=== PATIENT | female | born 1955 | race Caucasian/White ===

== ENCOUNTER 2017-01-22 16:38 | Inpatient (IN) | payer BC ==
--- NOTE | ~2017-01-22 | OP ---
Record Of Operation [facility] [address] [place]. [address] NAME: GAYLE LYONS : [birth year] STATUS : ADM IN [facility]#: [id number] AGE: 61 ADM/REG DATE : 01/22/17 MR#: [id number] REPORT SERV DATE: 01/23/17 DICTATED BY: ANABEL HARMAN DATE: 01/23/17 REPORT STATUS : Draft TRANSCRIBED BY: MODL DATE: 01/23/17 DATE OF PROCEDURE: 01/23/2017 PULMONARY CRITICAL CARE MEDICINE PROCEDURE NOTE PROCEDURE: Insertion of a right femoral arterial line for hemodynamic monitoring and frequent blood sampling. CONSENT: Written from the patient's . ANESTHETIC: 1% lidocaine without epinephrine 1 mL intradermally. PROCEDURE IN DETAIL: After verifying written consent from the patient's and conducting a time-out identifying the patient is Gayle Lyons, date of 1955, a sterile area was created using maximal sterile barriers including cap, gown, face shield, gloves, and sterile drape and the skin was prepped with chlorhexidine at the right groin. Subsequently under direct ultrasound visualization and a longitudinal view, a finder needle was used to aspirate bright red blood from the right femoral artery and a guidewire was advanced to a depth of approximately 5 cm. Subsequently a small jane was made with a 11 blade scalpel and a femoral arterial line catheter was inserted over the guidewire using Seldinger technique and secured to the skin with suture material. It was then connected to the transducer which showed a satisfactory pulsation on the monitor and an ABG was sent for analysis. A sterile Bioclusive dressing was applied and the procedure was completed. ESTIMATED BLOOD LOSS: Less than 1 mL. IMMEDIATE COMPLICATIONS: None. ELIAS/PHIL Anabel Harman MD / [id number] CC: Anabel Harman MD
--- NOTE | ~2017-01-22 | OP ---
Record Of Operation [facility] [address] [place]. [address] NAME: GAYLE LYONS : [birth year] STATUS : ADM IN PAT#: [id number] AGE: 61 ADM/REG DATE : 01/22/17 MR#: [id number] REPORT SERV DATE: 01/23/17 DICTATED BY: ANABEL HARMAN DATE: 01/23/17 REPORT STATUS : Draft TRANSCRIBED BY: MODL DATE: 01/23/17 DATE OF PROCEDURE: 01/23/2017 PROCEDURE: Right internal jugular Vas-Cath insertion for institution of CRRT. CONSENT: Written from the patient's . ANESTHETIC: 1% lidocaine without epinephrine intradermally. PROCEDURE DETAILS: Gayle Lyons was prepped and draped in the usual sterile fashion. A time out was called. Her procedural consent was reviewed which was signed by her and subsequently the right neck was prepped with chlorhexidine and maximal sterile barriers including cap, mask, gown, gloves, and sterile drape were used to create a sterile field and 1% lidocaine approximately 1 mL was instilled intradermally to achieve satisfactory local anesthetic. Subsequently, a Finder needle was used to aspirate blood under direct ultrasound visualization in the longitudinal view from the right internal jugular vein. A guidewire was inserted to a depth of approximately 10 cm and sequential dilators were passed after making a small jane with an 11 blade scalpel and ultimately a double-lumen Vas-Cath was inserted to a depth of approximately 14 cm and secured to the skin with suture material and a sterile Bioclusive dressing was applied. There was satisfactory blood aspiration and flush in both ports. A followup chest x-ray showed the tip of the catheter projecting into the superior vena cava and the line was cleared for use. ESTIMATED BLOOD LOSS: Less than 1 mL. IMMEDIATE COMPLICATIONS: None. ELAIS/PHIL Anabel Harman MD / [id number] CC: Anabel Harman MD
--- NOTE | ~2017-01-22 | CN ---
Consultation Report [facility] [address] [place]. [address] NAME: MATHEUS LYONS : 57 STATUS : ADM IN [facility]#: [id number] AGE: 61 ADM/REG DATE : 01/22/17 MR#: [id number] REPORT SERV DATE: 01/23/17 DICTATED BY: CRYSTAL DOBSON DATE: 01/23/17 REPORT STATUS : Draft TRANSCRIBED BY: MODL DATE: 01/23/17 NEPHROLOGY CONSULTATION DATE OF CONSULTATION: 01/23/2017 INDICATION FOR CONSULTATION: Acute kidney injury. HISTORY OF PRESENT ILLNESS: Ms. Lyons is a 61-year-old female who is seen for acute oliguric kidney failure following admission with acute hypoxemic respiratory failure and sepsis. She currently is on Levophed, phenylephrine, and vent support with minimal urine output and elevated procalcitonin and refractory acidosis. Her creatinine has risen from 0.57 to a value of 1.74, pH is 7.19, bicarb of 18 with a lactic acid of 12.3. She has been followed for pancreatic cancer since 2013 with laparoscopic Whipple procedure done at [facility] in 10/2013. She received radiation therapy and is followed by Dr. Somers for chemotherapy. PAST MEDICAL HISTORY: Pancreatic CA in 2013, remote hypertension, status post laparoscopic Whipple procedure. ALLERGIES: TO CLINDAMYCIN AND DILAUDID PER CHART. MEDICATIONS: Per chart. Creon, Aleve, fentanyl, Marinol, and Zofran. SOCIAL HISTORY: Per chart. The patient has taught gymnastics. No history of tobacco use. Uses wine socially. 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 FAMILY HISTORY: No biliary cancer per chart. Otherwise, unable to obtain. REVIEW OF SYSTEMS: Unable to obtain. PHYSICAL EXAMINATION: GENERAL: Sedated female on vent with OG tube and ET tube in place. VITAL SIGNS: Blood pressure 102/57 with prior low blood pressure and systolic of 50s. Temp 99.8 for T-max, current temp 97.3; respiratory rate 28; pulse 83. HEENT: Eyes: No scleral icterus. Pupils reactive. Extraocular movements not evaluated. Nares, no discharge. Mouth with OG tube and ET tube in place. NECK: No thyromegaly, masses, or bruits. CHEST/LUNGS: Few crackles laterally, unable to appreciate rhonchi. Symmetrical chest expansion. ABDOMEN: Supple. Bowel sounds decreased. No guarding. No tenderness. BREASTS: Exam not performed. PELVIC: Exam not performed. RECTAL: Exam not performed. EXTREMITIES: 1+ edema. Feet are mottled. No calf tenderness. Consultation Report [place] [id number] [address] NAME: MATHEUS LYONS : [birth year] STATUS : ADM IN [facility]#: [id number] AGE: 61 ADM/REG DATE : 01/22/17 MR#: [id number] REPORT SERV DATE: 01/23/17 DICTATED BY: CRYSTAL DOBSON DATE: 01/23/17 REPORT STATUS : Draft TRANSCRIBED BY: PHIL DATE: 01/23/17 NEUROLOGIC: Unable to evaluate. MUSCULOSKELETAL: No deformity. IMPRESSION: 1. Acute kidney injury, oliguric, likely secondary to severe shock/sepsis. 2. Severe sepsis, likely due to pneumonia with evidence of bilateral pulmonary infiltrates and left pleural effusion on chest x-ray. 3. Shock, on pressors. 4. Acute hypoxemic respiratory failure, on vent. 5. Coagulopathy with an INR of 4.3 and evidence of DIC. 6. Pancreatic CA in 2013, status post laparoscopic Whipple procedure at [facility] in 10/2013, chronic immunosuppression with chemotherapy. 7. Remote hypertension. 8. Remote irritable bowel syndrome. 9. Remote gastroesophageal reflux disease. 10.Anemia. PLAN: 1. Emergent CRRT discussed with . He is willing to proceed. 2. Labs. CG/MODL Crystal Dobson M.D. / [id number] CC: Janelle Duran MD
--- NOTE | ~2017-01-22 | DS ---
Discharge Summary [place] [address] [place]. [address] NAME: MATHEUS LYONS : [birth year] STATUS : DIS IN PAT#: [id number] AGE: 61 ADM/REG DATE : 01/22/17 MR#: [id number] REPORT SERV DATE: 02/07/17 DICTATED BY: ANABEL HARMAN DATE: 02/06/17 REPORT STATUS : Draft TRANSCRIBED BY: MODL DATE: 02/06/17 ADMISSION DATE: 01/22/2017 DISCHARGE DATE: 01/26/2017 SUMMARY DATE OF : 01/26/2017 DIAGNOSES AT THE TIME OF ADMISSION: Included: 1. Acute hypoxemic respiratory failure. 2. Sepsis, presumably secondary to pneumonia. 3. Advanced stage metastatic pancreatic cancer. 4. Volume depletion/dehydration. 5. Metabolic acidosis secondary to lactate elevation. 6. Immunocompromised state secondary to chemotherapy. 7. Hypoalbuminemia secondary to protein-calorie malnutrition. 8. Hypokalemia. 9. Underlying past medical history of anxiety, hypertension, chronic pain syndrome, chronic constipation associated with home analgesics. DIAGNOSES AT THE TIME OF : 1. Acute hypoxemic respiratory failure. 2. Profound septic shock with refractory lactic acidosis. 3. Adrenal insufficiency. 4. Shock liver. 5. Coagulopathy secondary to septic shock. 6. Metastatic pancreatic cancer. 7. Acute kidney injury requiring continuous dialysis. 8. Supraventricular tachycardia. 9. Hypoalbuminemia. 10.Large left pleural effusion. 11.Immunocompromised state secondary to chemotherapy. 12.Underlying past medical history of anxiety, hypertension, chronic pain, chronic constipation associated with chronic analgesic use. BRIEF HISTORY AND PHYSICAL: Please see my detailed dictation from 01/22/2017 for full details. Ms. Lyons was a very pleasant 61-year-old lady with past medical history of advanced stage pancreatic cancer, who was followed by Dr. Somers. She was diagnosed in 10/2013 via ERCP biopsy performed by Dr. Minaya and had been treated with a Whipple procedure at [facility] performed 10/27/2013 and later underwent both chemotherapy and XRT with Dr. Alexander. Her last chemotherapy was two weeks prior to her hospitalization. She presented to the ER at [facility] complaining of nausea, vomiting, dehydration, anxiety, and shortness of breath. She was found to be quite hypotensive and appeared to be volume depleted and was treated with aggressive IV rehydration and supplemental oxygen. She was ultimately transferred to our facility at the request of her to be closer to her oncologist. She was quite tachypneic on arrival, requiring Discharge Summary [place] [address] [address] NAME: MATHEUS LYONS : 57 STATUS : DIS IN PAT#: [id number] AGE: 61 ADM/REG DATE : 01/22/17 MR#: [id number] REPORT SERV DATE: 02/07/17 DICTATED BY: ANABEL HARMAN DATE: 02/06/17 REPORT STATUS : Draft TRANSCRIBED BY: MODL DATE: 02/06/17 maximal Vapotherm support and was ultimately intubated later in the evening on 01/22/[address] Terrell who also placed a central line on left subclavian on the evening of her admission. Please see his detailed procedure notes for additional information with regard to those procedures. HOSPITAL COURSE: Unfortunately, Ms. Lyons continued to deteriorate from worsening septic shock. Over the next 24 hours, she developed acute renal failure and was started on CRRT by Dr. Jeronimo who saw her in consultation. Please see my Vas-Cath insertion note for details of that procedure. She also underwent placement of a right femoral arterial line for hemodynamic monitoring and frequent blood sampling, which I performed on 01/23/2017. Please see my dictation for details of that procedure. She was seen by Dr. Somers from Oncology who knew her as an outpatient, who recommended ongoing aggressive support initially; however, she continued to deteriorate over the next couple of days and we obtained further information with regard to her metastatic disease (new CT demonstrated both skull METs and a new pulmonary embolus as well as a large left pleural effusion). Dr. Somers recommended that we move toward comfort focused care as her overall prognosis with regard to her underlying malignancy was fairly poor. She continued to deteriorate, requiring multiple vasopressors and began developing periods of bradycardia down to the 30s. I did have a number of meetings with her and two sons and they ultimately made her no shock, no CPR. On 01/24/2017, her oxygen and PEEP requirements continued to climb over the next few days, and IR was consulted for consideration of possible left-sided thoracentesis due to her large pleural effusion; however, they felt she was too high risk to proceed in light of her coagulopathy and high-level ventilatory support. On the morning of 01/26/2017, a family meeting was conducted between myself, Dr. Somers, and Dr. Jeronimo around 8 a.m. with the patient's and two sons, and the decision was made to proceed with transition to full comfort measures. She was premedicated with morphine and Ativan, and vasopressor support was discontinued, and she developed PEA and ultimately asystole, short time later she was pronounced by nursing staff at 10:40 a.m. on 01/26/2017 with her and two sons at bedside as well as multiple other family members. All of their questions were answered and they declined an autopsy. Her body was released to [facility] on the afternoon of 01/26/2017. TDS was contacted and declined at 11:45 a.m. on the morning of 01/26/2017. Please see additional handwritten progress notes as well as detailed dictations from consultants, imaging reports, laboratory reports, and additional supplemental information available on [employer] and RMI. DICTATED BY: MD ELIAS Mcbride/PHIL Anabel Harman MD Discharge Summary [address] [address] NAME: MATHEUS LYONS : 57 STATUS : DIS IN PAT#: [id number] AGE: 61 ADM/REG DATE : 01/22/17 MR#: [id number] REPORT SERV DATE: 02/07/17 DICTATED BY: ANABEL HARMAN DATE: 02/06/17 REPORT STATUS : Draft TRANSCRIBED BY: MODL DATE: 02/06/17 / [id number] CC: MD Betsey Mcbride
--- NOTE | ~2017-01-22 | OP ---
Record Of Operation [facility] [address] [place] [address] NAME: MATHEUS DING : 57 STATUS : ADM IN PAT#: [id number] AGE: 61 ADM/REG DATE : 01/22/17 MR#: [id number] REPORT SERV DATE: 01/22/17 DICTATED BY: JUAERZ TERRELL DATE: 01/22/17 REPORT STATUS : Draft TRANSCRIBED BY: MODL DATE: 01/22/17 DATE OF PROCEDURE: PROCEDURE PERFORMED: Central line placement. INDICATION: Persistent shock. DESCRIPTION OF PROCEDURE: The left subclavian area was prepped and draped in a sterile fashion using chlorhexidine solution. Topical anesthesia was achieved with lidocaine. We were able to cannulate the vein on the first attempt after confirming localization with ultrasound. Following cannulation, we advanced the guidewire without resistance and advanced a triple lumen central line catheter following Seldinger technique. All 3 ports withdrew nonpulsatile blood. All 3 ports flushed well. We secured the line with 0 silk, and chest radiograph is pending. HUSAM/PHIL Juarez Terrell M.D. / [id number] CC: Janelle Duran MD
--- NOTE | ~2017-01-22 | OP ---
Record Of Operation [facility] [address] [place] [address] NAME: MATHEUS DING : 57 STATUS : ADM IN [facility]#: [id number] AGE: 61 ADM/REG DATE : 01/22/17 MR#: [id number] REPORT SERV DATE: 01/22/17 DICTATED BY: JUAREZ TERRELL DATE: 01/22/17 REPORT STATUS : Draft TRANSCRIBED BY: MODL DATE: 01/22/17 DATE OF PROCEDURE: PROCEDURE PERFORMED: Oral endotracheal intubation. INDICATION: Impending respiratory failure with significant hypoxemia. DESCRIPTION OF PROCEDURE: The patient received 10 mL of IV propofol, and then using a #4 GlideScope blade, we were able to directly visualize the vocal cords which were midline and clear. We advanced a size 7.5 endotracheal tube beyond the vocal cords without difficulty. Proper placement was confirmed by good color change on an end-tidal CO2 indicator. Good auscultation of breath sounds bilaterally. Direct visualization of the endotracheal tube advanced beyond the vocal cords and chest radiograph. IMPRESSION: Successful oroendotracheal intubation for impending hypoxemic respiratory failure. HUSAM/PHIL Juarez Terrell M.D. / [id number] CC: Janelle Duran MD
--- NOTE | ~2017-01-22 | HP ---
History And Physical [place] [facility] [place] [address] NAME: MATHEUS LYONS : 57 STATUS : ADM IN [facility]#: [id number] AGE: 61 ADM/REG DATE : 01/22/17 MR#: [id number] REPORT SERV DATE: 01/22/17 DICTATED BY: ANABEL HARMAN DATE: 01/22/17 REPORT STATUS : Draft TRANSCRIBED BY: MODL DATE: 01/22/17 DATE OF ADMISSION: 01/22/2017 REASON FOR ADMISSION: Acute hypoxemic respiratory failure and cardiac arrhythmias. HISTORY OF PRESENT ILLNESS: Ms Lyons is a very pleasant 61-year-old lady who has a past medical history of advanced age pancreatic cancer, who is followed by Dr. Somers. She was actually diagnosed in October 2013, initially presenting as a biliary stricture, which was performed ERCP by Dr. Minaya and biopsies confirmed poorly differentiated infiltrating adenocarcinoma. She evaluated surgical options and ultimately underwent a laparoscopic Whipple at the [facility] on 10/27/2013. Final path revealed an infiltrating poorly differentiated adenocarcinoma, measuring 1.5 cm in the greatest dimension arising in the ampulla and invading the duodenum and the pancreatic head. Tumor was present less than 1 mm from the uncinate margin and 1 out of 12 regional lymph nodes were positive. There was also a perineural invasion, she recovered at [facility] for one week and ultimately was able to come back to [place], where she has been followed by doctors Yonis and Benjamin. Her last chemotherapy was 2 weeks ago. She presented via EMS to the [facility] Emergency Department today complaining of nausea, vomiting, suspected dehydration, anxiety, and shortness of breath. She was evaluated by EMS and actually found to have positive tilt test with orthostasis and received a 500 mL bolus in route to [facility] and another 1 L of fluid at [facility] followed by 200 mL an hour of maintenance fluid. Her labs showed a marked leukocytosis around 25,000 and a lactate level of 5.75. She received a dose of Zosyn and was ultimately transferred to our facility at the patient, her family's request to be closer to her primary oncologist Dr. Somers. She arrived here short time ago and is somewhat tachypneic on maximal Vapotherm 40 L on 100%. She does confirm some sputum production, but reports that she has been feeling fairly well up until the last couple of days. Of note, her mentioned that she does get around on a walker due to bone mets and a significant pain. PAST MEDICAL HISTORY: She has additional past medical history of hypertension. SURGICAL HISTORY: Includes laparoscopic Whipple at [facility] in October 2013, as described above as well as a Port-A-Cath insertion by Dr. Julio Cesar Reyes. She has occasional constipation and is status post menopause and hormones. She is A0 L2. HOME MEDICATIONS: Include Creon status post pancreatectomy, Aleve, Fentanyl, Marinol, and Zofran on an as-needed basis. ALLERGIES: HER ALLERGIES INCLUDE CLINDAMYCIN AND DILAUDID. SOCIAL HISTORY: She teaches gymnastics up until recently. She is a long-time nonsmoker, occasional alcohol use, and is . Her is her power of energy attorney. He is a retired policeman from the [employer]. FAMILY HISTORY: Noncontributory. History And Physical [address] [address] NAME: MATHEUS LYONS : 57 STATUS : ADM IN [facility]#: [id number] AGE: 61 ADM/REG DATE : 01/22/17 MR#: [id number] REPORT SERV DATE: 01/22/17 DICTATED BY: ANABEL HARMAN DATE: 01/22/17 REPORT STATUS : Draft TRANSCRIBED BY: PHIL DATE: 01/22/17 REVIEW OF SYSTEMS: Negative except for those points described above in the history of present illness section of the dictation. ADVANCED DIRECTIVES/LIVING BOSWELL: None. Her is her designated medical decision maker and reports that she is a full code, although should she deteriorate significantly, he would be open to adjusting her code status if clinically warranted in light of her advanced stage malignancy. PHYSICAL EXAMINATION: VITAL SIGNS: Heart rate is 108 presently, although she went up to almost 200 at [facility]. Blood pressure is 110 systolic. She is afebrile. Has a respiratory rate of around 38 per minute. GENERAL: The patient is alert, oriented, somewhat tachypneic on maximal Vapotherm and is able to speak in short sentences. She is mildly pale. HEENT: Head is atraumatic and normocephalic. Pupils are somewhat sunken, equal, round, and reactive to light. Her pupils are somewhat dilated at around 4 mm bilaterally and reactive to light. Extraocular movements are intact. She has mild conjunctival pallor. Ears, nose, and mouth are unremarkable except for dry oral mucosa with some crusting of the mucosa around the lips. NECK: Supple with so much accessary muscle use. Development work of breathing. CHEST: Symmetric with no active wheezing. She does have some transmitted upper airway sounds bilaterally and is mildly tachycardic with a regular rate and rhythm and no audible murmur on my examination. She has a Port-A-Cath in the right upper chest, which has already been accessed by nursing staff. ABDOMEN: Soft, nontender, and nondistended with positive bowel sounds in all four quadrants and no appreciable peritoneal signs. She does have a healed series of laparoscopic incisions from prior laparoscopic Whipple. : Unremarkable. There is no Santos catheter present as of yet. EXTREMITIES: Without clubbing, cyanosis, or edema. She has well manicured nails. LYMPHATIC: Unremarkable. She has no palpable adenopathy. NEUROLOGIC: Grossly intact. She moves all four extremities without difficulty and is cooperative and interactive with examination. PSYCHIATRIC: Appropriate to situation. LABORATORY AND DIAGNOSTIC STUDIES: Personal review of diagnostic workup completed today. At our facility, she has a CBC which is just resulted with white blood cell count of 26,000, hemoglobin of 10.3, and hematocrit of 32.2, a platelet count of 513 with a marked left shift with 90% segs and 1% bands. At the [facility] Emergency Department, it has been a full panel of labs completed and include a lactate of 5.75, some mildly elevated transaminases, pH 7.37 on ABG with a CO2 of 26, O2 of 42, PaO2 of 42, bicarb level of 15. This was on 40% FiO2. Her lipase level was undetectable. Potassium was mildly depressed at 3.4, calcium at 6.6 with an albumin level of 2.5 (corrected calcium for albumin level is close to normal). Her renal function is unremarkable. A series of EKG shows normal QT interval and supraventricular tachycardia on the initial tracing with sinus tach on a tracing from about 1 hour before the EKG showing sinus tach. No ST elevation or depression. There is no echocardiogram on file in our system. History And Physical [facility] [address] [place]. [address] NAME: MATHEUS LYONS : 57 STATUS : ADM IN PAT#: [id number] AGE: 61 ADM/REG DATE : 01/22/17 MR#: [id number] REPORT SERV DATE: 01/22/17 DICTATED BY: ANABEL HARMAN DATE: 01/22/17 REPORT STATUS : Draft TRANSCRIBED BY: MODWinston DATE: 01/22/17 IMPRESSION: 1. Acute hypoxemic respiratory failure of unclear etiology. 2. Suspected pneumonia. 3. Advanced stage metastatic pancreatic cancer on chemotherapy per Dr. Somers with evidence of bone mets and question of mediastinal mets and question of malignant pleural effusion. (We will need to obtain further records to clarify the extent of her disease). 4. Dehydration with positive tilt test and orthostasis at the [place] [facility], status post approximately 700 mL of normal saline resuscitation thus far. 5. Metabolic acidosis/lactic acidosis. 6. Immunocompromised state secondary to chemotherapy. 7. Hypoalbuminemia secondary to protein-calorie malnutrition. 8. Hypokalemia. 9. Underlying history of anxiety, hypertension, chronic pain, and chronic constipation associated with medications. PLAN: We have already started Ms. Lyons on additional fluid boluses and broad-spectrum antibiotics to include vancomycin and Zosyn. We will trend her lactate level and continue bolus with crystalloids on an as-needed basis to maintain her map home. We will proceed with a PICC line insertion for additional IV access as she certainly has the potential to deteriorate in the next 24 hours and may require use of vasopressors. She is tolerating Vapotherm on maximal settings for now and is somewhat tachypneic, however, would like to hold off on being intubated if possible, however, this has been discussed with the patient and her , and they are agreeable to proceed with intubation should her respiratory status further deteriorate. Suspect that her SVT is secondary to dehydration, sepsis, and hypoxemia. We will continue correct underlying causes and at family's request we will involve Cardiology. We will also check a 2D echocardiogram. We will trend her labs and replete electrolytes on an as-needed basis. Insert a Santos catheter for strict monitor Is and Os, and make further adjustments to her regimen as clinically warranted. She is full code, has been started on DVT prophylaxis and may benefit from CT angiogram of her chest to exclude thromboembolic disease once she is more clinically stable. We will hold off on full anticoagulation for now, pending further workup this evening. I did discuss the case with patient's at length as well as Dr. Mayur Rodriguez from Pathology, who is a family friend and visited this evening. ELIAS/PHIL Anabel Harman MD / [id number] CC: Anabel Harman MD
[~2017-01-22 16:38] MED LIST: ACET500CAP PO; ANTIBIOTIC IV; ASAB PO; BAC PO; CREON12000 UNT PO; GEMZAR IV; HARD NAILS PO; LEVAQUIN750 MG PO; MULTIVIT/MIN PO; NORV5 PO; ZOFRAN PO; ZOFRAN8 PO
[2017-01-22 17:13] LABS: BASOPHILS 0.1 %; BASOPHILS ABSOLUTE 0.02 10/3/uL (0.0-0.16); EOSINOPHILS 0 %; IMMATURE GRANULOCYTES 0.6 %; IMMATURE GRANULOCYTES ABSOLUTE 0.15 10/3/uL (0.0-0.11); LYMPHOCYTES 2.4 %; LYMPHOCYTES ABSOLUTE 0.62 10/3/uL (0.67-4.30); MEAN CORPUSCULAR HEMOGLOB 26.9 pg (26.0-34.0); MEAN PLATELET VOLUME 9.1 fL (9.2-13.0); MONOCYTES 4.8 %; MONOCYTES ABSOLUTE 1.27 10/3/uL (0.21-1.20); NEUTROPHILS 92.1 %; NEUTROPHILS ABSOLUTE 24.17 10/3/uL (2.02-8.40); RED CELL COUNT 3.83 10/6/uL (4.0-5.6)
[2017-01-22 17:17] LABS: HEMATOCRIT 32.2 % (36.0-48.0); HEMOGLOBIN 10.3 g/dL (12.0-16.0); MEAN CORPUSCULAR VOLUME 84.1 fL (80-100); PLATELET COUNT 513 10/3/uL (150-400); RBC DISTRIBUTION WIDTH 17.8 % (12.0-16.0); WHITE BLOOD CELLS 26.2 10/3/uL (4.5-10.5)
[2017-01-22 17:41] LABS: ANISOCYTOSIS 1+ (5-10/OIF) (0-5/OIF); BAND NEUTROPHILS 1 %; MONOCYTES 7 %; MONOCYTES ABSOLUTE (CALC) 1.83 10/3/uL (0.21-1.20); NEUTROPHILS ABSOLUTE (CALC) 24.37 10/3/uL (2.02-8.40); PLATELET ESTIMATE SLT INC (ADEQUATE); SEGMENTED NEUTROPHIL (0) 92 %; TOTAL NUCLEATED CELLS 100
[2017-01-22 17:42] LABS: POIKILOCYTOSIS 1+ (5-10/OIF) (0-5/OIF); VACUOLATED NEUTROPHILES OCC
[2017-01-22 17:45] LABS: MANUAL DIFF NO %
[2017-01-22 17:50] LABS: BUN (BLOOD UREA NITROGEN) 8 MG/DL (6-23); CHLORIDE, SERUM 108 MMOL/L (96-112); CO2 (CARBON DIOXIDE) 21 MMOL/L (24-34); CREATININE 0.57 MG/DL (0.55-1.02); FREE T4 1.86 NG/DL (0.76-1.46); GFR AFRICAN AMERICAN 117 ML/MIN (>=60); GFR NON AFRICAN AMERICAN 101 ML/MIN (>=60); GLUCOSE, SERUM 133 MG/DL (60-99); PHOSPHORUS, SERUM 2.3 MG/DL (2.5-4.5); POTASSIUM, SERUM 3.3 MMOL/L (3.5-5.3); SGOT(AST) 63 U/L (5-40); SGPT(ALT) 28 U/L (5-65); SODIUM, SERUM 140 MMOL/L (135-148)
[2017-01-22 17:52] LABS: A/G RATIO 0.5 (0.7-1.9); ALBUMIN 1.8 G/DL (3.5-5.0); ALKALINE PHOSPHATASE 265 U/L (45-117); FOLATE 15.9 NG/ML (>5.2); GLOBULIN 3.4 G/DL (2.5-4.1); TOTAL BILIRUBIN 0.8 MG/DL (0-1.2); TOTAL PROTEIN 5.2 G/DL (6.0-8.5)
[2017-01-22 18:03] LABS: CALCIUM, SERUM 6.6 MG/DL (8.5-10.4)
[2017-01-23 01:47] LABS: BE (BASE EXCESS) -14.7 MEQ/L (0 +/- 2.5); CARBOXYHEMOGLOBIN 0.2 % (0-3); HCO3 (ACTUAL BICARBONATE) 12.7 MEQ/L (23-27); INSTRUMENT SERIAL # 35151; METHEMOGLOBIN 0.2 % (0-3); O2 CONTENT 13.4 VOL% (18-24); OPERATOR ID 32193; PCO2 (CO2 TENSION) 35 MMHG (35-45); PO2 (O2 TENSION) 118 MMHG (79-93); SAMPLE Arterial; pH 7.17 (7.37-7.43)
[2017-01-23 01:47] LABS: CARBOXYHEMOGLOBIN 0.1 % (0-3); HCO3 (ACTUAL BICARBONATE) 10.4 MEQ/L (23-27); HEMOBLOGIN CONTENT 10.2 G/DL (12-16); INSTRUMENT SERIAL # 35151; METHEMOGLOBIN 0.3 % (0-3); MODE CMV; O2 CONTENT 14.2 VOL% (18-24); OPERATOR ID 32193; PCO2 (CO2 TENSION) 34 MMHG (35-45); PO2 (O2 TENSION) 209 MMHG (79-93); SAMPLE Arterial; TIDAL VOLUME 400 ML
[2017-01-23 01:48] LABS: TIDAL VOLUME 400 ML
[2017-01-23 05:17] LABS: HEMATOCRIT 31.3 % (36.0-48.0); HEMOGLOBIN 9.3 g/dL (12.0-16.0); MEAN CORPUSCULAR HEMOGLOB 26.5 pg (26.0-34.0); MEAN PLATELET VOLUME 9.7 fL (9.2-13.0); NUCLEATED RED BLOOD CELLS 0.2 /100WBC (0-0); PLATELET COUNT 586 10/3/uL (150-400); RBC DISTRIBUTION WIDTH 18.6 % (12.0-16.0); RED CELL COUNT 3.51 10/6/uL (4.0-5.6)
[2017-01-23 05:20] LABS: MANUAL DIFF YES %; MEAN CORPUS HGB CONC 29.7 g/dL (32.0-36.0); MEAN CORPUSCULAR VOLUME 89.2 fL (80-100); WHITE BLOOD CELLS 35.3 10/3/uL (4.5-10.5)
[2017-01-23 05:25] LABS: ALBUMIN 1.7 G/DL (3.5-5.0); BUN (BLOOD UREA NITROGEN) 11 MG/DL (6-23); CHLORIDE, SERUM 100 MMOL/L (96-112); SODIUM, SERUM 137 MMOL/L (135-148)
[2017-01-23 05:29] LABS: CALCIUM, SERUM 6.2 MG/DL (8.5-10.4); CO2 (CARBON DIOXIDE) 13 MMOL/L (24-34); CREATININE 1.39 MG/DL (0.55-1.02); GFR AFRICAN AMERICAN 48 ML/MIN (>=60); GFR NON AFRICAN AMERICAN 41 ML/MIN (>=60); GLUCOSE, SERUM 241 MG/DL (60-99); PHOSPHORUS, SERUM 4.9 MG/DL (2.5-4.5); POTASSIUM, SERUM 4.1 MMOL/L (3.5-5.3)
[2017-01-23 05:45] LABS: ANISOCYTOSIS 1+ (5-10/OIF) (0-5/OIF); BAND NEUTROPHILS 14 %; LYMPHOCYTES 1 %; LYMPHOCYTES ABSOLUTE (CALC) 0.35 10/3/uL (0.67-4.30); MONOCYTES 4 %; MONOCYTES ABSOLUTE (CALC) 1.41 10/3/uL (0.21-1.20); NEUTROPHILS ABSOLUTE (CALC) 33.54 10/3/uL (2.02-8.40); PLATELET ESTIMATE INC (ADEQUATE); POLYCHROMASIA 1+ (2-5/OIF) (0-1/OIF); SEGMENTED NEUTROPHIL (0) 81 %; TOTAL NUCLEATED CELLS 100
[2017-01-23] MEDS ORDERED: Z-PAK PO (10:42)
[2017-01-23] MEDS ORDERED: DURA25 TOP (10:42)
[2017-01-23] MEDS ORDERED: [UNRECOGNIZED DRUG - CODE] PO (10:43)
[2017-01-23] MEDS ORDERED: ALEVE220 MG PO (10:43)
[2017-01-23] MEDS ORDERED: MARI2.5 PO (10:43)
[2017-01-23 10:49] LABS: HEMATOCRIT 32.4 % (36.0-48.0); HEMOGLOBIN 9.8 g/dL (12.0-16.0); MANUAL DIFF YES %; MEAN CORPUS HGB CONC 30.2 g/dL (32.0-36.0); MEAN CORPUSCULAR VOLUME 89.3 fL (80-100); MEAN PLATELET VOLUME 9.6 fL (9.2-13.0); NUCLEATED RED BLOOD CELLS 0.2 /100WBC (0-0); PLATELET COUNT 572 10/3/uL (150-400); RBC DISTRIBUTION WIDTH 18.6 % (12.0-16.0); RED CELL COUNT 3.63 10/6/uL (4.0-5.6); WHITE BLOOD CELLS 39.7 10/3/uL (4.5-10.5)
[2017-01-23 10:51] LABS: FIBRINOGEN 452 MG/DL (230-462); INTERNATIONAL NORMAL RATI 4.2 UNITS (-); PARTIAL THROMBO TIME 55.6 SEC (22.5-37.2)
[2017-01-23 10:53] LABS: PROTIME (NOT ORD) 39.9 SEC (12.0-14.5)
[2017-01-23 11:01] LABS: ANISOCYTOSIS 1+ (5-10/OIF) (0-5/OIF); BAND NEUTROPHILS 11 %; D-DIMER QUANTITATIVE 3.57 ug/mLFEU (< 0.50); LYMPHOCYTES 1 %; MONOCYTES 2 %; MONOCYTES ABSOLUTE (CALC) 0.79 10/3/uL (0.21-1.20); NEUTROPHILS ABSOLUTE (CALC) 38.51 10/3/uL (2.02-8.40); PLATELET ESTIMATE SLT INC (ADEQUATE); SEGMENTED NEUTROPHIL (0) 86 %; TOTAL NUCLEATED CELLS 100
[2017-01-23 11:02] LABS: BURR CELLS 1+ (3-10/OIF) (0-2/OIF); POLYCHROMASIA 1+ (2-5/OIF) (0-1/OIF); TOXIC GRANULATION 1+; VACUOLATED NEUTROPHILES OCC
[2017-01-23 11:08] LABS: A/G RATIO 0.5 (0.7-1.9); ALBUMIN 1.7 G/DL (3.5-5.0); BUN (BLOOD UREA NITROGEN) 13 MG/DL (6-23); CHLORIDE, SERUM 98 MMOL/L (96-112); CPK (IF ELEVATED MB BANDS) 483 U/L (0-200); CREATININE 1.74 MG/DL (0.55-1.02); GFR AFRICAN AMERICAN 36 ML/MIN (>=60); GFR NON AFRICAN AMERICAN 31 ML/MIN (>=60); GLOBULIN 3.4 G/DL (2.5-4.1); PHOSPHORUS, SERUM 4.9 MG/DL (2.5-4.5); POTASSIUM, SERUM 4.2 MMOL/L (3.5-5.3); SGOT(AST) 289 U/L (5-40); SGPT(ALT) 66 U/L (5-65); SODIUM, SERUM 134 MMOL/L (135-148); TOTAL PROTEIN 5.1 G/DL (6.0-8.5)
[2017-01-23 11:08] LABS: BE (BASE EXCESS) -13.3 MEQ/L (0 +/- 2.5); CARBOXYHEMOGLOBIN 0.2 % (0-3); HEMOBLOGIN CONTENT 10.1 G/DL (12-16); INSTRUMENT SERIAL # 35151; METHEMOGLOBIN 0.2 % (0-3); MODE CMV; O2 CONTENT 13.2 VOL% (18-24); OPERATOR ID 32199; PCO2 (CO2 TENSION) 37 MMHG (35-45); PO2 (O2 TENSION) 90 MMHG (79-93); SAMPLE Arterial; TIDAL VOLUME 400 ML; pH 7.19 (7.37-7.43)
[2017-01-23 11:09] LABS: ALKALINE PHOSPHATASE 280 U/L (45-117); CO2 (CARBON DIOXIDE) 18 MMOL/L (24-34); DIRECT BILIRUBIN 1.2 MG/DL (0.0-0.4); GLUCOSE, SERUM 291 MG/DL (60-99); INDIRECT BILIRUBIN(NOT ORDER) 0.4 MG/DL (0.1-0.9); TOTAL BILIRUBIN 1.6 MG/DL (0-1.2)
[2017-01-23 11:10] LABS: TROPONIN I 0.52 NG/ML (<0.05)
[2017-01-23 11:23] LABS: CK-MB 14.8 NG/ML
[2017-01-23 11:25] LABS: CKMB INDEX (NOT ORD) 3.1
[2017-01-23 11:36] LABS: PROCALCITONIN 2.31 ng/mL (<0.5)
[2017-01-23 16:36] LABS: CHLORIDE, SERUM 98 MMOL/L (96-112); CREATININE 1.44 MG/DL (0.55-1.02); GFR AFRICAN AMERICAN 46 ML/MIN (>=60); GFR NON AFRICAN AMERICAN 39 ML/MIN (>=60); GLUCOSE, SERUM 243 MG/DL (60-99); POTASSIUM, SERUM 3.6 MMOL/L (3.5-5.3); SODIUM, SERUM 136 MMOL/L (135-148)
[2017-01-23 16:37] LABS: BUN (BLOOD UREA NITROGEN) 9 MG/DL (6-23); CALCIUM, SERUM 5.6 MG/DL (8.5-10.4); CO2 (CARBON DIOXIDE) 22 MMOL/L (24-34)
[2017-01-23 17:40] LABS: HEMATOCRIT 29.2 % (36.0-48.0); MEAN CORPUS HGB CONC 30.8 g/dL (32.0-36.0); MEAN CORPUSCULAR HEMOGLOB 26.5 pg (26.0-34.0); MEAN PLATELET VOLUME 9.5 fL (9.2-13.0); NUCLEATED RED BLOOD CELLS 0.3 /100WBC (0-0); PLATELET COUNT 464 10/3/uL (150-400); RBC DISTRIBUTION WIDTH 18.7 % (12.0-16.0); RED CELL COUNT 3.39 10/6/uL (4.0-5.6)
[2017-01-23 17:41] LABS: MEAN CORPUSCULAR VOLUME 86.1 fL (80-100); WHITE BLOOD CELLS 34.5 10/3/uL (4.5-10.5)
[2017-01-23 17:42] LABS: MANUAL DIFF YES %
[2017-01-23 17:50] LABS: PHOSPHORUS, SERUM 3.3 MG/DL (2.5-4.5)
[2017-01-23 17:58] LABS: BAND NEUTROPHILS 5 %; MONOCYTES 5 %; MONOCYTES ABSOLUTE (CALC) 1.73 10/3/uL (0.21-1.20); NEUTROPHILS ABSOLUTE (CALC) 32.78 10/3/uL (2.02-8.40); SEGMENTED NEUTROPHIL (0) 90 %; TOTAL NUCLEATED CELLS 100
[2017-01-23 17:59] LABS: ANISOCYTOSIS 1+ (5-10/OIF) (0-5/OIF); PLATELET ESTIMATE SLT INC (ADEQUATE)
[2017-01-23 18:00] LABS: POLYCHROMASIA 1+ (2-5/OIF) (0-1/OIF)
[2017-01-23 18:01] LABS: ELLIPTOCYTES 1+ (3-10/OIF) (0-2/OIF)
[2017-01-23 23:29] LABS: BUN (BLOOD UREA NITROGEN) 7 MG/DL (6-23); CHLORIDE, SERUM 102 MMOL/L (96-112); CO2 (CARBON DIOXIDE) 24 MMOL/L (24-34); CREATININE 1.07 MG/DL (0.55-1.02); GFR AFRICAN AMERICAN 65 ML/MIN (>=60); GFR NON AFRICAN AMERICAN 56 ML/MIN (>=60); POTASSIUM, SERUM 4.2 MMOL/L (3.5-5.3); SODIUM, SERUM 138 MMOL/L (135-148)
[2017-01-23 23:30] LABS: GLUCOSE, SERUM 136 MG/DL (60-99)
[2017-01-23 23:31] LABS: CALCIUM, SERUM 6.4 MG/DL (8.5-10.4)
[2017-01-23 23:36] LABS: HEMATOCRIT 26.4 % (36.0-48.0); HEMOGLOBIN 8.1 g/dL (12.0-16.0); MEAN CORPUS HGB CONC 30.7 g/dL (32.0-36.0); MEAN CORPUSCULAR HEMOGLOB 26.3 pg (26.0-34.0); MEAN CORPUSCULAR VOLUME 85.7 fL (80-100); MEAN PLATELET VOLUME 9.2 fL (9.2-13.0); NUCLEATED RED BLOOD CELLS 0.5 /100WBC (0-0); PLATELET COUNT 388 10/3/uL (150-400); RBC DISTRIBUTION WIDTH 18.4 % (12.0-16.0); RED CELL COUNT 3.08 10/6/uL (4.0-5.6)
[2017-01-23 23:38] LABS: MANUAL DIFF YES %; WHITE BLOOD CELLS 27.1 10/3/uL (4.5-10.5)
[2017-01-23 23:56] LABS: ANISOCYTOSIS 1+ (5-10/OIF) (0-5/OIF); BAND NEUTROPHILS 9 %; LYMPHOCYTES 1 %; LYMPHOCYTES ABSOLUTE (CALC) 0.27 10/3/uL (0.67-4.30); MONOCYTES 2 %; MONOCYTES ABSOLUTE (CALC) 0.54 10/3/uL (0.21-1.20); NEUTROPHILS ABSOLUTE (CALC) 26.29 10/3/uL (2.02-8.40); PLATELET ESTIMATE ADQ (ADEQUATE); SEGMENTED NEUTROPHIL (0) 88 %; TOTAL NUCLEATED CELLS 100
[2017-01-23 23:57] LABS: TEARDROP SHAPED RBCS FEW (3-10/OIF)
[2017-01-24 03:43] LABS: BE (BASE EXCESS) -1.5 MEQ/L (0 +/- 2.5); CARBOXYHEMOGLOBIN 0.3 % (0-3); HCO3 (ACTUAL BICARBONATE) 22.6 MEQ/L (23-27); HEMOBLOGIN CONTENT 7.8 G/DL (12-16); INSTRUMENT SERIAL # 35151; METHEMOGLOBIN 0.3 % (0-3); MODE CMV; O2 CONTENT 10.2 VOL% (18-24); OPERATOR ID 17370; PCO2 (CO2 TENSION) 35 MMHG (35-45); PO2 (O2 TENSION) 78 MMHG (79-93); SAMPLE Arterial; TIDAL VOLUME 400 ML; pH 7.43 (7.37-7.43)
[2017-01-24 05:39] LABS: HEMATOCRIT 24.2 % (36.0-48.0); HEMOGLOBIN 7.7 g/dL (12.0-16.0); MEAN CORPUS HGB CONC 31.8 g/dL (32.0-36.0); MEAN CORPUSCULAR HEMOGLOB 26.8 pg (26.0-34.0); MEAN CORPUSCULAR VOLUME 84.3 fL (80-100); MEAN PLATELET VOLUME 9.5 fL (9.2-13.0); NUCLEATED RED BLOOD CELLS 0.5 /100WBC (0-0); RBC DISTRIBUTION WIDTH 18.5 % (12.0-16.0); RED CELL COUNT 2.87 10/6/uL (4.0-5.6); WHITE BLOOD CELLS 22.3 10/3/uL (4.5-10.5)
[2017-01-24 05:51] LABS: ALBUMIN 1.7 G/DL (3.5-5.0); BUN (BLOOD UREA NITROGEN) 6 MG/DL (6-23); CALCIUM, SERUM 7.3 MG/DL (8.5-10.4); CHLORIDE, SERUM 102 MMOL/L (96-112); CO2 (CARBON DIOXIDE) 25 MMOL/L (24-34); CREATININE 0.89 MG/DL (0.55-1.02); GFR AFRICAN AMERICAN 82 ML/MIN (>=60); GFR NON AFRICAN AMERICAN 70 ML/MIN (>=60); GLUCOSE, SERUM 143 MG/DL (60-99); POTASSIUM, SERUM 4.2 MMOL/L (3.5-5.3); SGOT(AST) 344 U/L (5-40); SGPT(ALT) 87 U/L (5-65); SODIUM, SERUM 137 MMOL/L (135-148); TOTAL BILIRUBIN 1.5 MG/DL (0-1.2); TOTAL PROTEIN 4.4 G/DL (6.0-8.5)
[2017-01-24 05:52] LABS: A/G RATIO 0.6 (0.7-1.9); ALKALINE PHOSPHATASE 245 U/L (45-117); GLOBULIN 2.7 G/DL (2.5-4.1)
[2017-01-24 05:54] LABS: LACTATE 4.5 MMOL/L (0.3-2.4)
[2017-01-24 05:57] LABS: ANISOCYTOSIS 1+ (5-10/OIF) (0-5/OIF); BAND NEUTROPHILS 3 %; BURR CELLS 1+ (3-10/OIF) (0-2/OIF); LYMPHOCYTES 3 %; MONOCYTES 2 %; PLATELET ESTIMATE ADQ (ADEQUATE); SEGMENTED NEUTROPHIL (0) 92 %; TOTAL NUCLEATED CELLS 100
[2017-01-24 05:58] LABS: MANUAL DIFF YES %; PLATELET COUNT 261 10/3/uL (150-400)
[2017-01-24 09:02] LABS: PHOSPHORUS, SERUM 1.6 MG/DL (2.5-4.5)
[2017-01-24 09:25] LABS: PROCALCITONIN 1.88 ng/mL (<0.5)
[2017-01-24 09:56] LABS: HEMOGLOBIN 7.3 g/dL (12.0-16.0); MEAN CORPUS HGB CONC 31.7 g/dL (32.0-36.0); MEAN CORPUSCULAR HEMOGLOB 26.6 pg (26.0-34.0); MEAN CORPUSCULAR VOLUME 83.9 fL (80-100); MEAN PLATELET VOLUME 9.1 fL (9.2-13.0); NUCLEATED RED BLOOD CELLS 0.5 /100WBC (0-0); PLATELET COUNT 214 10/3/uL (150-400); RBC DISTRIBUTION WIDTH 18.6 % (12.0-16.0); RED CELL COUNT 2.74 10/6/uL (4.0-5.6); WHITE BLOOD CELLS 22.3 10/3/uL (4.5-10.5)
[2017-01-24 09:58] LABS: MANUAL DIFF YES %
[2017-01-24 10:09] LABS: BUN (BLOOD UREA NITROGEN) 6 MG/DL (6-23); CALCIUM, SERUM 7.4 MG/DL (8.5-10.4); CHLORIDE, SERUM 102 MMOL/L (96-112); CO2 (CARBON DIOXIDE) 27 MMOL/L (24-34); CREATININE 0.74 MG/DL (0.55-1.02); GFR AFRICAN AMERICAN 102 ML/MIN (>=60); GFR NON AFRICAN AMERICAN 88 ML/MIN (>=60); GLUCOSE, SERUM 150 MG/DL (60-99); POTASSIUM, SERUM 4.1 MMOL/L (3.5-5.3); SODIUM, SERUM 138 MMOL/L (135-148)
[2017-01-24 10:15] LABS: ANISOCYTOSIS 1+ (5-10/OIF) (0-5/OIF); HYPOCHROMIA 1+ (3-10/OIF) (0-2/OIF); LYMPHOCYTES 2 %; LYMPHOCYTES ABSOLUTE (CALC) 0.22 10/3/uL (0.67-4.30); MONOCYTES 2 %; NEUTROPHILS ABSOLUTE (CALC) 22.08 10/3/uL (2.02-8.40); PLATELET ESTIMATE ADQ (ADEQUATE); SEGMENTED NEUTROPHIL (0) 96 %; TOTAL NUCLEATED CELLS 100
[2017-01-24 10:59] LABS: PHOSPHORUS, SERUM 1.8 MG/DL (2.5-4.5)
[2017-01-24 18:25] LABS: BUN (BLOOD UREA NITROGEN) 5 MG/DL (6-23); CALCIUM, SERUM 7.6 MG/DL (8.5-10.4); CHLORIDE, SERUM 103 MMOL/L (96-112); CO2 (CARBON DIOXIDE) 28 MMOL/L (24-34); CREATININE 0.67 MG/DL (0.55-1.02); GFR AFRICAN AMERICAN 111 ML/MIN (>=60); GFR NON AFRICAN AMERICAN 96 ML/MIN (>=60); GLUCOSE, SERUM 129 MG/DL (60-99); POTASSIUM, SERUM 3.9 MMOL/L (3.5-5.3); SODIUM, SERUM 140 MMOL/L (135-148)
[2017-01-24 18:30] LABS: BASOPHILS 0 %; BASOPHILS ABSOLUTE 0.01 10/3/uL (0.0-0.16); EOSINOPHILS 0 %; HEMATOCRIT 23.4 % (36.0-48.0); HEMOGLOBIN 7.3 g/dL (12.0-16.0); IMMATURE GRANULOCYTES 0.6 %; IMMATURE GRANULOCYTES ABSOLUTE 0.18 10/3/uL (0.0-0.11); LYMPHOCYTES 1.3 %; LYMPHOCYTES ABSOLUTE 0.36 10/3/uL (0.67-4.30); MEAN CORPUS HGB CONC 31.2 g/dL (32.0-36.0); MEAN CORPUSCULAR HEMOGLOB 26.2 pg (26.0-34.0); MEAN CORPUSCULAR VOLUME 83.9 fL (80-100); MEAN PLATELET VOLUME 9.6 fL (9.2-13.0); MONOCYTES 4.6 %; MONOCYTES ABSOLUTE 1.33 10/3/uL (0.21-1.20); NEUTROPHILS 93.5 %; NEUTROPHILS ABSOLUTE 26.79 10/3/uL (2.02-8.40); NUCLEATED RED BLOOD CELLS 0.6 /100WBC (0-0); PLATELET COUNT 244 10/3/uL (150-400); RBC DISTRIBUTION WIDTH 18.6 % (12.0-16.0); RED CELL COUNT 2.79 10/6/uL (4.0-5.6); WHITE BLOOD CELLS 28.7 10/3/uL (4.5-10.5)
[2017-01-24 18:32] LABS: MANUAL DIFF NO %
[2017-01-24 18:46] LABS: LYMPHOCYTES 2 %; LYMPHOCYTES ABSOLUTE (CALC) 0.57 10/3/uL (0.67-4.30); MONOCYTES 4 %; MONOCYTES ABSOLUTE (CALC) 1.15 10/3/uL (0.21-1.20); NEUTROPHILS ABSOLUTE (CALC) 26.98 10/3/uL (2.02-8.40); SEGMENTED NEUTROPHIL (0) 94 %; TOTAL NUCLEATED CELLS 100
[2017-01-24 18:47] LABS: ANISOCYTOSIS 1+ (5-10/OIF) (0-5/OIF); HYPOCHROMIA 1+ (3-10/OIF) (0-2/OIF); MICROCYTES 1+ (5-10/OIF) (0-5/OIF)
[2017-01-24 18:48] LABS: BASOPHILIC STIPPLING 1+ (2-5/OIF) (0-1/OIF)
[2017-01-24 20:00] LABS: CARBOXYHEMOGLOBIN 0.2 % (0-3); HCO3 (ACTUAL BICARBONATE) 25.7 MEQ/L (23-27); HEMOBLOGIN CONTENT 7.9 G/DL (12-16); INSTRUMENT SERIAL # 35151; METHEMOGLOBIN 0.3 % (0-3); MODE CMV; O2 CONTENT 9.6 VOL% (18-24); OPERATOR ID 13861; PCO2 (CO2 TENSION) 47 MMHG (35-45); PO2 (O2 TENSION) 61 MMHG (79-93); SAMPLE Arterial; TIDAL VOLUME 400 ML; pH 7.36 (7.37-7.43)
[2017-01-24 23:30] LABS: PHOSPHORUS, SERUM 2.7 MG/DL (2.5-4.5)
[2017-01-24 23:48] LABS: HEMATOCRIT 22.5 % (36.0-48.0); HEMOGLOBIN 7.2 g/dL (12.0-16.0); MEAN CORPUSCULAR VOLUME 84.3 fL (80-100); MEAN PLATELET VOLUME 9.2 fL (9.2-13.0); NUCLEATED RED BLOOD CELLS 0.6 /100WBC (0-0); PLATELET COUNT 172 10/3/uL (150-400); RBC DISTRIBUTION WIDTH 18.9 % (12.0-16.0); RED CELL COUNT 2.67 10/6/uL (4.0-5.6); WHITE BLOOD CELLS 28.2 10/3/uL (4.5-10.5)
[2017-01-24 23:49] LABS: MANUAL DIFF YES %
[2017-01-24 23:50] LABS: BUN (BLOOD UREA NITROGEN) 7 MG/DL (6-23); CALCIUM, SERUM 7.5 MG/DL (8.5-10.4); CHLORIDE, SERUM 105 MMOL/L (96-112); CO2 (CARBON DIOXIDE) 27 MMOL/L (24-34); CREATININE 0.81 MG/DL (0.55-1.02); GFR AFRICAN AMERICAN 91 ML/MIN (>=60); GFR NON AFRICAN AMERICAN 79 ML/MIN (>=60); GLUCOSE, SERUM 124 MG/DL (60-99); POTASSIUM, SERUM 4.3 MMOL/L (3.5-5.3); SODIUM, SERUM 141 MMOL/L (135-148)
[2017-01-25 01:04] LABS: ANISOCYTOSIS 1+ (5-10/OIF) (0-5/OIF); BAND NEUTROPHILS 2 %; LYMPHOCYTES 2 %; LYMPHOCYTES ABSOLUTE (CALC) 0.56 10/3/uL (0.67-4.30); NEUTROPHILS ABSOLUTE (CALC) 27.64 10/3/uL (2.02-8.40); PLATELET ESTIMATE ADQ (ADEQUATE); SEGMENTED NEUTROPHIL (0) 96 %; TOTAL NUCLEATED CELLS 100
[2017-01-25 01:06] LABS: RBC MORPHOLOGY ABN (NORMAL); STOMATOCYTES 1+ (3-10/OIF) (0-2/OIF); TARGET CELLS OCC (1-2/OIF) (0-1/OIF)
[2017-01-25 03:25] LABS: BE (BASE EXCESS) -0.8 MEQ/L (0 +/- 2.5); CARBOXYHEMOGLOBIN 0.2 % (0-3); HEMOBLOGIN CONTENT 7.9 G/DL (12-16); INSTRUMENT SERIAL # 35151; METHEMOGLOBIN 0.3 % (0-3); O2 CONTENT 11.2 VOL% (18-24); OPERATOR ID 33449; PCO2 (CO2 TENSION) 55 MMHG (35-45); PO2 (O2 TENSION) 228 MMHG (79-93); SAMPLE Arterial; TIDAL VOLUME 400 ML; pH 7.29 (7.37-7.43)
[2017-01-25 04:59] LABS: INTERNATIONAL NORMAL RATI 2.7 UNITS (-)
[2017-01-25 05:01] LABS: PROTIME (NOT ORD) 28.7 SEC (12.0-14.5)
[2017-01-25 05:09] LABS: HEMATOCRIT 23.5 % (36.0-48.0); HEMOGLOBIN 7.2 g/dL (12.0-16.0); MEAN CORPUS HGB CONC 30.6 g/dL (32.0-36.0); MEAN CORPUSCULAR VOLUME 84.8 fL (80-100); MEAN PLATELET VOLUME 9.2 fL (9.2-13.0); NUCLEATED RED BLOOD CELLS 0.6 /100WBC (0-0); PLATELET COUNT 169 10/3/uL (150-400); RBC DISTRIBUTION WIDTH 19.1 % (12.0-16.0); RED CELL COUNT 2.77 10/6/uL (4.0-5.6)
[2017-01-25 05:15] LABS: A/G RATIO 0.6 (0.7-1.9); ALBUMIN 1.7 G/DL (3.5-5.0); ALKALINE PHOSPHATASE 295 U/L (45-117); BUN (BLOOD UREA NITROGEN) 6 MG/DL (6-23); CALCIUM, SERUM 7.7 MG/DL (8.5-10.4); CHLORIDE, SERUM 103 MMOL/L (96-112); CO2 (CARBON DIOXIDE) 26 MMOL/L (24-34); CREATININE 0.65 MG/DL (0.55-1.02); GFR AFRICAN AMERICAN 112 ML/MIN (>=60); GFR NON AFRICAN AMERICAN 96 ML/MIN (>=60); GLOBULIN 2.8 G/DL (2.5-4.1); GLUCOSE, SERUM 126 MG/DL (60-99); PHOSPHORUS, SERUM 2.4 MG/DL (2.5-4.5); POTASSIUM, SERUM 4.2 MMOL/L (3.5-5.3); SGOT(AST) 713 U/L (5-40); SGPT(ALT) 225 U/L (5-65); SODIUM, SERUM 139 MMOL/L (135-148); TOTAL BILIRUBIN 2.6 MG/DL (0-1.2); TOTAL PROTEIN 4.5 G/DL (6.0-8.5)
[2017-01-25 05:18] LABS: MANUAL DIFF YES %; WHITE BLOOD CELLS 29.3 10/3/uL (4.5-10.5)
[2017-01-25 05:38] LABS: ANISOCYTOSIS 1+ (5-10/OIF) (0-5/OIF); BAND NEUTROPHILS 11 %; HYPOCHROMIA 1+ (3-10/OIF) (0-2/OIF); LYMPHOCYTES 3 %; LYMPHOCYTES ABSOLUTE (CALC) 0.88 10/3/uL (0.67-4.30); MACROCYTES 1+ (5-10/OIF) (0-5/OIF); MONOCYTES 4 %; MONOCYTES ABSOLUTE (CALC) 1.17 10/3/uL (0.21-1.20); NEUTROPHILS ABSOLUTE (CALC) 27.25 10/3/uL (2.02-8.40); PLATELET ESTIMATE ADQ (ADEQUATE); POLYCHROMASIA 1+ (2-5/OIF) (0-1/OIF); SEGMENTED NEUTROPHIL (0) 82 %; TOTAL NUCLEATED CELLS 100
[2017-01-25 05:39] LABS: MICROCYTES 1+ (5-10/OIF) (0-5/OIF)
[2017-01-25 06:21] LABS: CARBOXYHEMOGLOBIN 0.4 % (0-3); HCO3 (ACTUAL BICARBONATE) 25.1 MEQ/L (23-27); HEMOBLOGIN CONTENT 6.9 G/DL (12-16); INSTRUMENT SERIAL # 35151; METHEMOGLOBIN 0.2 % (0-3); MODE CMV; O2 CONTENT 8.7 VOL% (18-24); OPERATOR ID 13861; PCO2 (CO2 TENSION) 50 MMHG (35-45); PO2 (O2 TENSION) 70 MMHG (79-93); SAMPLE Arterial; TIDAL VOLUME 400 ML; pH 7.32 (7.37-7.43)
[2017-01-25 11:39] LABS: HEMATOCRIT 22.6 % (36.0-48.0); MEAN CORPUS HGB CONC 30.5 g/dL (32.0-36.0); MEAN CORPUSCULAR VOLUME 85.3 fL (80-100); MEAN PLATELET VOLUME 8.7 fL (9.2-13.0); NUCLEATED RED BLOOD CELLS 0.6 /100WBC (0-0); PLATELET COUNT 128 10/3/uL (150-400); RBC DISTRIBUTION WIDTH 19.1 % (12.0-16.0); RED CELL COUNT 2.65 10/6/uL (4.0-5.6)
[2017-01-25 11:41] LABS: HEMOGLOBIN 6.9 g/dL (12.0-16.0); WHITE BLOOD CELLS 28.7 10/3/uL (4.5-10.5)
[2017-01-25 11:43] LABS: MANUAL DIFF YES %
[2017-01-25 11:47] LABS: BUN (BLOOD UREA NITROGEN) 6 MG/DL (6-23); CALCIUM, SERUM 7.5 MG/DL (8.5-10.4); CHLORIDE, SERUM 104 MMOL/L (96-112); CO2 (CARBON DIOXIDE) 28 MMOL/L (24-34); CREATININE 0.55 MG/DL (0.55-1.02); GFR AFRICAN AMERICAN 118 ML/MIN (>=60); GFR NON AFRICAN AMERICAN 102 ML/MIN (>=60); GLUCOSE, SERUM 126 MG/DL (60-99); PHOSPHORUS, SERUM 2.7 MG/DL (2.5-4.5); POTASSIUM, SERUM 4.5 MMOL/L (3.5-5.3); SODIUM, SERUM 142 MMOL/L (135-148)
[2017-01-25 13:31] LABS: ANISOCYTOSIS 1+ (5-10/OIF) (0-5/OIF); HYPOCHROMIA 1+ (3-10/OIF) (0-2/OIF); LYMPHOCYTES 4 %; LYMPHOCYTES ABSOLUTE (CALC) 1.15 10/3/uL (0.67-4.30); MONOCYTES 5 %; MONOCYTES ABSOLUTE (CALC) 1.44 10/3/uL (0.21-1.20); NEUTROPHILS ABSOLUTE (CALC) 26.12 10/3/uL (2.02-8.40); PLATELET ESTIMATE SLT DEC (ADEQUATE); SEGMENTED NEUTROPHIL (0) 91 %; TOTAL NUCLEATED CELLS 100
[2017-01-25 17:15] LABS: MEAN CORPUS HGB CONC 31.1 g/dL (32.0-36.0); MEAN CORPUSCULAR HEMOGLOB 26.7 pg (26.0-34.0); MEAN CORPUSCULAR VOLUME 85.8 fL (80-100); MEAN PLATELET VOLUME 8.5 fL (9.2-13.0); NUCLEATED RED BLOOD CELLS 0.6 /100WBC (0-0); RBC DISTRIBUTION WIDTH 19.4 % (12.0-16.0)
[2017-01-25 17:16] LABS: HEMATOCRIT 20.6 % (36.0-48.0); HEMOGLOBIN 6.4 g/dL (12.0-16.0); PLATELET COUNT 79 10/3/uL (150-400); WHITE BLOOD CELLS 26.6 10/3/uL (4.5-10.5)
[2017-01-25 17:17] LABS: MANUAL DIFF YES %
[2017-01-25 17:23] LABS: VANCOMYCIN TROUGH 12.9 MCG/ML (10.0-20.0)
[2017-01-25 17:33] LABS: ANISOCYTOSIS 1+ (5-10/OIF) (0-5/OIF); BAND NEUTROPHILS 5 %; MONOCYTES 4 %; MONOCYTES ABSOLUTE (CALC) 1.06 10/3/uL (0.21-1.20); NEUTROPHILS ABSOLUTE (CALC) 25.54 10/3/uL (2.02-8.40); PLATELET ESTIMATE DEC (ADEQUATE); POLYCHROMASIA 1+ (2-5/OIF) (0-1/OIF); SEGMENTED NEUTROPHIL (0) 91 %; TOTAL NUCLEATED CELLS 100
[2017-01-25 17:34] LABS: VACUOLATED NEUTROPHILES 1+
[2017-01-25 18:46] LABS: BUN (BLOOD UREA NITROGEN) 7 MG/DL (6-23); CALCIUM, SERUM 7.5 MG/DL (8.5-10.4); CHLORIDE, SERUM 104 MMOL/L (96-112); CO2 (CARBON DIOXIDE) 26 MMOL/L (24-34); CREATININE 0.61 MG/DL (0.55-1.02); GFR AFRICAN AMERICAN 114 ML/MIN (>=60); GFR NON AFRICAN AMERICAN 99 ML/MIN (>=60); GLUCOSE, SERUM 151 MG/DL (60-99); POTASSIUM, SERUM 4.4 MMOL/L (3.5-5.3); SODIUM, SERUM 140 MMOL/L (135-148)
[2017-01-25 23:10] LABS: MEAN CORPUS HGB CONC 31.8 g/dL (32.0-36.0); MEAN CORPUSCULAR HEMOGLOB 27.5 pg (26.0-34.0); MEAN CORPUSCULAR VOLUME 86.3 fL (80-100); RBC DISTRIBUTION WIDTH 17.3 % (12.0-16.0); WHITE BLOOD CELLS 24.6 10/3/uL (4.5-10.5)
[2017-01-25 23:15] LABS: HEMATOCRIT 28.9 % (36.0-48.0); HEMOGLOBIN 9.2 g/dL (12.0-16.0); PLATELET COUNT 52 10/3/uL (150-400); RED CELL COUNT 3.35 10/6/uL (4.0-5.6)
[2017-01-25 23:16] LABS: MANUAL DIFF YES %
[2017-01-25 23:33] LABS: BUN (BLOOD UREA NITROGEN) 6 MG/DL (6-23); CALCIUM, SERUM 7.2 MG/DL (8.5-10.4); CHLORIDE, SERUM 105 MMOL/L (96-112); CO2 (CARBON DIOXIDE) 27 MMOL/L (24-34); CREATININE 0.55 MG/DL (0.55-1.02); GFR AFRICAN AMERICAN 118 ML/MIN (>=60); GFR NON AFRICAN AMERICAN 102 ML/MIN (>=60); GLUCOSE, SERUM 138 MG/DL (60-99); PHOSPHORUS, SERUM 1.9 MG/DL (2.5-4.5); POTASSIUM, SERUM 4.3 MMOL/L (3.5-5.3); SODIUM, SERUM 141 MMOL/L (135-148)
[2017-01-25 23:49] LABS: ANISOCYTOSIS 1+ (5-10/OIF) (0-5/OIF); BAND NEUTROPHILS 4 %; LYMPHOCYTES 4 %; LYMPHOCYTES ABSOLUTE (CALC) 0.98 10/3/uL (0.67-4.30); MONOCYTES 5 %; MONOCYTES ABSOLUTE (CALC) 1.23 10/3/uL (0.21-1.20); NEUTROPHILS ABSOLUTE (CALC) 22.39 10/3/uL (2.02-8.40); PLATELET ESTIMATE DEC (ADEQUATE); RBC MORPHOLOGY ABN (NORMAL); SEGMENTED NEUTROPHIL (0) 87 %; TOTAL NUCLEATED CELLS 100
[2017-01-26 03:36] LABS: BE (BASE EXCESS) -2.7 MEQ/L (0 +/- 2.5); HCO3 (ACTUAL BICARBONATE) 23.9 MEQ/L (23-27); HEMOBLOGIN CONTENT 9.4 G/DL (12-16); INSTRUMENT SERIAL # 35151; METHEMOGLOBIN 0.3 % (0-3); MODE CMV; O2 CONTENT 12.4 VOL% (18-24); OPERATOR ID 23712; PCO2 (CO2 TENSION) 50 MMHG (35-45); PO2 (O2 TENSION) 85 MMHG (79-93); SAMPLE Arterial; TIDAL VOLUME 400 ML
[2017-01-26 04:36] LABS: MEAN CORPUS HGB CONC 32.1 g/dL (32.0-36.0); MEAN CORPUSCULAR HEMOGLOB 27.3 pg (26.0-34.0); MEAN CORPUSCULAR VOLUME 84.8 fL (80-100); NUCLEATED RED BLOOD CELLS 1.4 /100WBC (0-0); PLATELET COUNT 29 10/3/uL (150-400); RBC DISTRIBUTION WIDTH 17.3 % (12.0-16.0)
[2017-01-26 04:38] LABS: MANUAL DIFF YES %
[2017-01-26 04:44] LABS: BUN (BLOOD UREA NITROGEN) 6 MG/DL (6-23); CALCIUM, SERUM 7.4 MG/DL (8.5-10.4); CHLORIDE, SERUM 103 MMOL/L (96-112); CO2 (CARBON DIOXIDE) 26 MMOL/L (24-34); CREATININE 0.56 MG/DL (0.55-1.02); GFR AFRICAN AMERICAN 117 ML/MIN (>=60); GFR NON AFRICAN AMERICAN 101 ML/MIN (>=60); GLUCOSE, SERUM 158 MG/DL (60-99); POTASSIUM, SERUM 4.2 MMOL/L (3.5-5.3); SODIUM, SERUM 139 MMOL/L (135-148)
[2017-01-26 04:49] LABS: PHOSPHORUS, SERUM 3.9 MG/DL (2.5-4.5)
[2017-01-26 05:03] LABS: BAND NEUTROPHILS 5 %; IMMATURE GRANS ABSOLUTE (CALC) 0.23 10/3/uL (0.0-0.11); LYMPHOCYTES 3 %; LYMPHOCYTES ABSOLUTE (CALC) 0.69 10/3/uL (0.67-4.30); METAMYELOCYTES 1 %; MONOCYTES 4 %; MONOCYTES ABSOLUTE (CALC) 0.92 10/3/uL (0.21-1.20); NEUTROPHILS ABSOLUTE (CALC) 21.16 10/3/uL (2.02-8.40); SEGMENTED NEUTROPHIL (0) 87 %; TOTAL NUCLEATED CELLS 100
[2017-01-26 05:04] LABS: ANISOCYTOSIS 1+ (5-10/OIF) (0-5/OIF); PLATELET ESTIMATE DEC (ADEQUATE); POLYCHROMASIA 1+ (2-5/OIF) (0-1/OIF)
[2017-01-26 05:26] LABS: BE (BASE EXCESS) -4.4 MEQ/L (0 +/- 2.5); CARBOXYHEMOGLOBIN 1.3 % (0-3); HCO3 (ACTUAL BICARBONATE) 21.8 MEQ/L (23-27); HEMOBLOGIN CONTENT 9.1 G/DL (12-16); INSTRUMENT SERIAL # 35151; METHEMOGLOBIN 0.3 % (0-3); MODE CMV; O2 CONTENT 10.3 VOL% (18-24); OPERATOR ID 13861; PCO2 (CO2 TENSION) 45 MMHG (35-45); PO2 (O2 TENSION) 49 MMHG (79-93); SAMPLE Arterial; TIDAL VOLUME 400 ML
[2017-01-26 05:50] LABS: INTERNATIONAL NORMAL RATI 2.7 UNITS (-); PROTIME (NOT ORD) 28.7 SEC (12.0-14.5)
[2017-01-26 05:51] LABS: PARTIAL THROMBO TIME 42.1 SEC (22.5-37.2)
== END 2017-01-26 15:57 | disposition expired | DRG 871 ==
LOC: CCU 16:38
PROVIDERS: Internal Medicine Critical Care Medicine; Internal Medicine Nephrology
PROC: 5A1945Z Respiratory Ventilation, 24-96 Consecutive Hours (ICD-10-PCS; principal; 2017-01-22)
PROC: 0BH17EZ Insertion of Endotracheal Airway into Trachea, Via Natural or Artificial Opening (ICD-10-PCS; 2017-01-22)
PROC: 05HM33Z Insertion of Infusion Device into Right Internal Jugular Vein, Percutaneous Approach (ICD-10-PCS; 2017-01-22)
PROC: B543ZZA Ultrasonography of Right Jugular Veins, Guidance (ICD-10-PCS; 2017-01-22)
PROC: 05HM33Z Insertion of Infusion Device into Right Internal Jugular Vein, Percutaneous Approach (ICD-10-PCS; 2017-01-23)
PROC: 5A1D60Z (ICD-10-PCS; 2017-01-24)
DX: A41.9 Sepsis, unspecified organism (principal); R65.21 Severe sepsis with septic shock; J96.01 Acute respiratory failure with hypoxia; J18.9 Pneumonia, unspecified organism; C25.9 Malignant neoplasm of pancreas, unspecified; C25.0 Malignant neoplasm of head of pancreas; E87.2 Acidosis; N17.9 Acute kidney failure, unspecified; C78.4 Secondary malignant neoplasm of small intestine; C77.2 Secondary and unspecified malignant neoplasm of intra-abdominal lymph nodes; I47.1 Supraventricular tachycardia; C79.51 Secondary malignant neoplasm of bone; E46 Unspecified protein-calorie malnutrition; C79.89 Secondary malignant neoplasm of other specified sites; E86.0 Dehydration; E86.1 Hypovolemia; F41.9 Anxiety disorder, unspecified; I10 Essential (primary) hypertension; K59.00 Constipation, unspecified; E87.6 Hypokalemia; R52 Pain, unspecified; Z88.1 Allergy status to other antibiotic agents; Z88.5 Allergy status to narcotic agent; Z79.899 Other long term (current) drug therapy; Z98.890 Other specified postprocedural states
CPT/HCPCS: 31720; 36415; 36600; 70470; 71010; 71260; 74000; 74178; 80048; 80053; 80069; 80202; 82248; 82330; 82530; 82550; 82553; 82607; 82728; 82746; 82803; 82805; 82947; 82962; 83540; 83550; 83605; 83735; 84100; 84132; 84145; 84295; 84439; 84443; 84481; 84484; 85014; 85025; 85049; 85379; 85384; 85610; 85730; 86850; 86900; 86901; 86920; 87040; 87070; 87205; 87641; 92950; 93005; 94002; 94003; 94640; 94770; A9270-GY; C1751; C1752; C1894; C8929; C9113; J0153; J0282; J0456; J0610; J1720; J2185; J2370; J2405; J2543; J3010; J3370; J3475; P9016; P9047; Q9957; Q9967